=== PATIENT | female | born 1950 | race Caucasian/White ===

== ENCOUNTER → 2017-02-18 | Outpatient (CLI) | payer MEDICARE, OTHER ==
--- NOTE | 2017-02-18 15:27 | STEVAL ---
Eval Subjective and History Date/Time of Eval DATE: 02/18/17 TIME: 15:13 Medical Diagnosis MODIFIED BARIUM SWALLOW STUDY Treatment Order: Assessment, Dev./Imp. tx plan Orientations: x 3 Primary Complaint: OTHER DYSPHAGIA R13.19 Pain: No Date of Onset of Primary Com: MONTHS+ Secondary Complaint: 'COUGHING/CHOKING' Prior History of This Problem: Yes (SEVERAL MONTHS/YEARS) Patient's Goals: "TO HELP MYSELF SO I DON'T CHOKE WHEN I AM EATING OUT" Significant Past Medical Hx: PATIENT DENIED HEART DISEASE, HTN, HYPERCHOLESTEROLEMIA, DIABETES. STATES SHE HAS REFLUX. Medical History Form Reviewed: Yes Residence Type: Private home/apartment Current Functional Status: PATIENT REPORTS SHE FEELS LIKE SHE HAS SPOTS IN HER THROAT THAT "TICKEL" WHEN SHE SWALLOWS AND CREATES LARGE COUGH EPISODES. STATES SHE HAS BEEN ON MEDICATION FOR REFLUX FOR APPROX. 5 YEARS AND THAT SHE RECENTLY INCREASED IT TO 2X A DAY AND THEN BACK TO 1X PER DAY. STATES SHE HAS STOPPED EATING/DRINKING AFTER HER SUPPER MEALS BUT THAT DOES NOT HELP. REPORTS THAT IT IS HAPPENING MORE FREQUENTLY AND COUGHING SPELLS ARE MORE HARSH. STATES TWICE THE DELINQUENCY PREVENTION SOCIAL WORKER HAS ASKED HER IF SHE NEEDS 911 TO BE CALLED. Education Comment NEEDLE PUNCH MACHINE OPERATOR HELPER EDUCATED PATIENT ON REASONING FOR EXAM, HOW THE EXAM WOULD BE DONE, AND THEN EDUCATED THE PATIENT ON RECOMMENDATIONS FOLLOWING THE STUDY. SHE VERBALIZED UNDERSTANDING. Subjective and History Comment: AN ARRIVED EARLY. SHE TF HERSELF BACK TO THE IMAGING ROOM AND HAUSTED CHAIR INDEPENDENTLY. SHE WAS WITHOUT ACUTE C/O PAIN OR FATIGUE. SHE WAS PLEASANTLY COOPERATIVE. Modified Barium Swallow Lateral View Oral Phase : Lateral View Food Presentation: Thin Liquid via Spoon, Thin Liquid via Straw , Pureed Food- Pudding, Solid- Jonh Cracker, Syrup liquid via spoon, Syrup liquid via cup Number Presentations Lat View: 3 Labial Closure: No Impairment (WFL) Bolus Formation Pooling L/R: No Impairment (WFL) Bolus Formation Under Tongue: No Impairment (WFL) Bolus Formation Scattered Loss: No Impairment (WFL) Mastication Rotary Chew: No Impairment (WFL) Mastication Munching: No Impairment (WFL) Mastication Laterization: No Impairment (WFL) Lingual Movement: No Impairment (WFL) Residue Clearing: No Impairment (WFL) Premature Swallow: No Impairment (WFL) Other Oral Phase Observations: PATIENTS ORAL PHASE OF SWALLOW FUNCTIONAL. PATIENT WITHOUT DIFFICULTY FORMING A COHESIVE BOLUS FOR ORAL TRANSIT. MASTICATION FAIR ON SOLIDS. NO ORAL RESIDUE FOLLOWING SWALLOW. Swallow Response Delay: No Impairment (WFL) Base of Tongue: No Impairment (WFL) Epiglottic Coverage: No Impairment (WFL) Laryngeal Elevation: No Impairment (WFL) Vallecular Retention Clearing: No Impairment (WFL) Pharyn.Wall Residue Clearing: No Impairment (WFL) Pyriform Sinus Clearing: No Impairment (WFL) Other Pharyngeal Phase Observ.: PATIENTS PHARYNGEAL PHASE OF SWALLOW FUNCTIONAL. PATIENT WITHOUT ASPIRATION OR PENETRATION DURING THIS STUDY. PATIENT EXHIBITED PROMPT SWALLOW ON ALL CONSISTENCIES. BASE OF TONGUE MOVEMENT FUNCTIONAL. EPIGLOTTIC INVERSION FUNCTIONAL. PATIENT WITH TRACE AMOUNTS OF RESIDUE IN THE PHARYNGEAL RECESSES ON THICKER CONSISTENCIES. PATIENT HAD A FEW COUGHING EPISODES ASSOCIATED WITH THE SLIGHT RESIDUE. CAN NOT EXCLUDE HYPERSENSITIVITY TO THE PHARYNGEAL RESIDUE. A/P Test Performed YES A/P View Vocal Cord Function: Good A/P View Esophogeal Function: No Impairment (WFL) Assessment/Plan of Care Speech Therapy Impressions: PATIENT PRESENTS WITH FUNCTIONAL SWALLOW RESPONSE. NO ASPIRATION OR PENETRATION WERE APPRECIATED DURING THIS STUDY. HYOLARYNGEAL ELEVATION FUNCTIONAL. TRACE (VERY MINIMAL) AMOUNTS OF RESIDUE NOTED IN THE VALLECULAE AND PYRIFORMS FOLLOWING THICKER CONSISTENCIES, WHICH WAS CLEARED WITH VOLITIONAL SECONDARY SWALLOW. RECOMMENDATIONS OUTLINED BELOW. ST Treatment Plan: Evaluation Only ST Treatment Plan Frequency: N/A Treatment Plan Duration: N/A Plan of Care Comment RECOMMENDATIONS: 1) DIET TOLERATED. SOFTER SOLIDS WITH MOIST ITEMS TO HELP PREVENT CHOKING EPISODES. THIN LIQUIDS. 2) RECOMMEND FOLLOW UP WITH ENT TO VIEW VOCAL CORDS, CAN NOT EXCLUDE POSSIBILITY OF VOCAL CORD DYSFUNCTION 3) RECOMMEND CONTINUATION OF REFLUX PRECAUTIONS AND MEDICATIONS 4) RECOMMEND PATIENT TO JOURNAL ABOUT CHOKING EPISODES (WHERE SHE IS, WHAT SHE IS EATING, IF THE ENVIRONMENT IS HOT/COLD, STRONG SMELLS, TIME OF DAY) Date of Visit 02/18/17 Time Visit Began: 13:45 Time Visit Ended: 14:15 ST Assess/Plan of Care: ST Treatment Charge: MBSS Minutes of Individual Therapy: 30 GCODE Swallowing: G8996 - current Severity Modifier: CI - 1-19% Swallowing: G8997 - goal Severity Modifier: CI - 1-19% Swallowing: G8998 - d/c Severity Modifier: CI - 1-19% LUIS FALCON MS CCC-NEEDLE PUNCH MACHINE OPERATOR HELPER February 18, 2017 15:17
--- NOTE | 2017-02-18 15:28 | DI ---
Indication:ITS.REASON: R05 COUGH; R13.19 DYSPHAGIA Procedure:MODIFIED BAR. SWALLOW STUDY MODIFIED BAR. SWALLOW STUDY: Videofluoroscopy was performed in conjunction with a escrow representative from speech pathology and a separate report and recommendations will be provided. Varying gradations of barium from thin to solid were administered. There was no aspiration noted with any of the consistencies. On the AP view the bolus showed no obvious preference for either side. Impression: No aspiration seen. Please see the speech pathology report for additional details and recommendations. Fluoroscopy dose: 4.32 mGy (Cumulative air kerma) Jimenez Castanon RPA/BRIANA performed this under my direct supervision. .
== END ==
LOC: IMA 13:22
PROVIDERS: ATTEND Family Medicine
DX: R13.19 Other dysphagia (principal); R05 Cough
CPT/HCPCS: 74230; 92611; G8996; G8997; G8998

== ENCOUNTER → 2017-02-18 | Outpatient (CLI) | payer MEDICARE, OTHER | LOC: WC.BC 14:41 | DX: Z12.31 Encounter for screening mammogram for malignant neoplasm of breast (principal); N64.59 Other signs and symptoms in breast; Z80.3 Family history of malignant neoplasm of breast | CPT/HCPCS: 77063; G0202 ==